=== PATIENT | female | born 1950 | race Caucasian/White ===

== ENCOUNTER 2019-03-21 23:16 | Emergency (ER) | payer OTHER ==
[~2019-03-21] VITALS: Ht 167.6 cm; Wt 86.2 kg
[~2019-03-21 23:16] MED LIST: ALBU2.5V5 INH; ALLER-TEC D 5-1 EACH PO; AMLO10 PO; CODEINE-GUAIFE120 ML PO; Flonase 0.05% N16 GM; HYDROCODONE-AC1 EAC1 PO; Humulin N100 UNIT/1 SQ; Ipratropium Brom5 GM MC; LEVA1.25 INH; LIDO700A20 TOP; Loratadine10 MG PO; METO10 PO; MOME220I INH; OMEPRAZOLE20 MG PO; PRAM.125 PO; PRED1 PO; SERT100 PO; Super Calcium600 MG PO; Tylenol325 MG PO; Ultram50 MG PO; Zocor20 MG PO
== END 2019-03-22 01:15 | disposition home or self-care (01) ==
LOC: ER 23:16
DX: S32.591A Other specified fracture of right pubis, initial encounter for closed fracture (principal); S40.011A Contusion of right shoulder, initial encounter; S70.01XA Contusion of right hip, initial encounter; E11.22 Type 2 diabetes mellitus with diabetic chronic kidney disease; N18.3 Chronic kidney disease, stage 3 (moderate); J45.909 Unspecified asthma, uncomplicated; M31.30 Wegener's granulomatosis without renal involvement; Z88.6 Allergy status to analgesic agent; Z88.2 Allergy status to sulfonamides; Z88.8 Allergy status to other drugs, medicaments and biological substances; Z79.899 Other long term (current) drug therapy; Z79.51 Long term (current) use of inhaled steroids; W18.30XA Fall on same level, unspecified, initial encounter; M25.511 Pain in right shoulder; E11.9 Type 2 diabetes mellitus without complications
CPT/HCPCS: 72192; 73030; 73502; 99283-25

== ENCOUNTER → 2020-01-30 | Outpatient (CLI) | payer OTHER | LOC: LAB SHORT 17:34 → LAB EV 17:34 | DX: R30.9 Painful micturition, unspecified (principal) | CPT/HCPCS: 87086 ==

== ENCOUNTER 2020-07-12 02:32 | Emergency (ER) | payer OTHER, SELFPAY ==
[~2020-07-12] VITALS: Ht 162.6 cm; Wt 81.7 kg
[2020-07-12] MEDS ORDERED: AMOCLA875 PO (03:54)
== END 2020-07-12 04:22 | disposition home or self-care (01) ==
LOC: ER 02:32
DX: J18.9 Pneumonia, unspecified organism (principal); J45.909 Unspecified asthma, uncomplicated; E11.22 Type 2 diabetes mellitus with diabetic chronic kidney disease; N18.30 Chronic kidney disease, stage 3 unspecified; Z79.899 Other long term (current) drug therapy; Z88.6 Allergy status to analgesic agent; Z88.2 Allergy status to sulfonamides; Z88.8 Allergy status to other drugs, medicaments and biological substances; Z79.52 Long term (current) use of systemic steroids
CPT/HCPCS: 71046; 94640; 99283-25; A9270; J1100

== ENCOUNTER → 2020-12-10 | Outpatient (CLI) | payer OTHER ==
[~2020-12-10] MED LIST changes: +AMOCLA875 PO
[2020-12-10 14:36] LABS: Appearance, Urine Hazy (Clear); Blood, Urine 1+ (Neg); Glucose Qualitative, Urine Neg (Neg); Ketones, Urine Neg (Neg); Leukocyte Esterase, Urine 2+ (Neg); Nitrite, Urine Pos (Neg); Protein, Urine 2+ (Neg); Specific Gravity, Urine 1.015 (1.003-1.022); Urobilinogen, Urine 2+ (Normal)
[2020-12-10 14:53] LABS: Bilirubin, Urine 2+ (Neg); Color, Urine Orange (P-Yellow)
[2020-12-10 14:55] LABS: Bacteria Mod /hpf; Red Blood Cells, Urine 0-2 /hpf (0-2); Squamous Epithelial Cells Rare /hpf (Few); White Blood Cells, Urine 50-100 /hpf (0-5)
== END | disposition home or self-care (01) ==
LOC: LAB SHORT 14:03 → LAB 14:03
PROVIDERS: Family Medicine
DX: R30.9 Painful micturition, unspecified (principal)
CPT/HCPCS: 81001; 87077; 87086; 87186

== ENCOUNTER 2021-04-06 12:41 | Day surgery (SDC) | payer OTHER ==
[~2021-04-06] VITALS: Ht 167.6 cm; Wt 86.9 kg
[2021-04-06] MEDS ORDERED: COLCHICINE0.6 MG (13:25)
[2021-04-06] MEDS ORDERED: DICLOFENAC SOD100 GM (13:25)
[2021-04-06] MEDS ORDERED: GLIP10ER (13:26)
[2021-04-06] MEDS ORDERED: PRED1 (13:27)
--- NOTE | 2021-04-06 13:58 | NUR ---
04/06/21 [address] LISA ABOUT PT WHEEZES, HE ORDERS DUONEB, GIVEN ORDERED.
--- NOTE | 2021-04-06 16:15 | NUR ---
04/06/21 1615 Linda Grant PT C/O 8/10 PAIN IN OPERATIVE LEG. MEDICATED WITH FENTANYL 25MCG IVP PER ORDERS. REPEATED DOSE AFTER 5 MINUTES. PT REPORTS SOME RELIEF FROM FENTANYL BUT STATES PAIN STILL 8/10.
== END 2021-04-06 16:50 | disposition home or self-care (01) ==
LOC: ORSCSDS 12:41
PROVIDERS: Podiatrist Foot & Ankle Surgery
PROC: 0LQV0ZZ Repair Right Foot Tendon, Open Approach (ICD-10-PCS; principal; 2021-04-06 14:15)
DX: M67.88 Other specified disorders of synovium and tendon, other site (principal); M76.71 Peroneal tendinitis, right leg; I10 Essential (primary) hypertension; G47.33 Obstructive sleep apnea (adult) (pediatric); K21.9 Gastro-esophageal reflux disease without esophagitis; E11.9 Type 2 diabetes mellitus without complications; F41.9 Anxiety disorder, unspecified; M04.9 Autoinflammatory syndrome, unspecified; Z79.899 Other long term (current) drug therapy
CPT/HCPCS: 82947; A9270; J0171; J0690; J1100; J1885; J2405; J2704; J3010; J7120

== ENCOUNTER → 2021-08-25 | Outpatient (CLI) | payer OTHER ==
[~2021-08-25] MED LIST changes: +COLCHICINE0.6 MG; +DICLOFENAC SOD100 GM; +GLIP10ER; +PRED1
== END | disposition home or self-care (01) ==
LOC: LAB 16:00 → LAB SHORT 16:00
PROVIDERS: Family Medicine
DX: G89.4 Chronic pain syndrome (principal); Z79.899 Other long term (current) drug therapy
CPT/HCPCS: G0480

== ENCOUNTER 2022-06-16 11:39 | Day surgery (SDC) | payer OTHER ==
[~2022-06-16] VITALS: Ht 167.6 cm; Wt 78.0 kg
[2022-06-16] MEDS ORDERED: METF500 PO (12:40)
--- NOTE | 2022-06-16 13:53 | NUR ---
06/16/22 1353 Joy Malagon CASE CANCELLED BY DOCTORS DUE TO SINUS ISSUES/CONGESTION/RISK OF INFECTION. PATIENT DISCHARGED HOME PRIOR TO ANY MEDICATIONS GIVEN. IV DISCONTINUED. PATIENT VERBALIZED UNDERSTANDING.
== END 2022-06-16 13:50 | disposition home or self-care (01) ==
LOC: ORSCSDS 11:39
DX: G56.01 Carpal tunnel syndrome, right upper limb (principal); Z53.9 Procedure and treatment not carried out, unspecified reason; E11.9 Type 2 diabetes mellitus without complications; J45.909 Unspecified asthma, uncomplicated; Z79.84 Long term (current) use of oral hypoglycemic drugs; Z79.899 Other long term (current) drug therapy
CPT/HCPCS: 82947; J0690; J2001; J2250; J2704; J3010; J7120

== ENCOUNTER → 2022-08-24 | Outpatient (CLI) | payer OTHER ==
[~2022-08-24] MED LIST changes: +METF500 PO
[2022-08-24 11:02] LABS: BASOPHILS ABSOLUTE AUTO 0.04 K/mm3 (0.00-0.23); BASOPHILS PERCENT AUTO 1 % (0-2); EOSINOPHILS PERCENT AUTO 5 % (0-6); Hematocrit 39.6 % (33.0-51.0); IMMATURE GRAN ABSOLUTE AUTO 0.01 K/mm3 (0.00-0.10); IMMATURE GRAN PERCENT AUTO 0 % (0-1); LYMPHOCYTES ABSOLUTE AUTO 1.33 K/mm3 (0.84-5.20); LYMPHOCYTES PERCENT AUTO 30 % (21-46); MONOCYTES ABSOLUTE AUTO 0.41 K/mm3 (0.16-1.47); MONOCYTES PERCENT AUTO 9 % (4-13); Mean Corpuscular HGB 29.6 pg (26.0-34.0); Mean Corpuscular HGB Conc 32.8 g/dL (31.5-36.5); Mean Corpuscular Volume 90 fL (80-100); Mean Platelet Volume 9.7 fL (9.1-12.4); NEUTROPHILS ABSOLUTE AUTO 2.46 K/mm3 (1.96-9.15); NEUTROPHILS PERCENT AUTO 55 % (41-73); Platelet Count 246 K/mm3 (150-400); RDW Coefficient Variation 13.9 % (11.7-14.2); RDW Standard Deviation 46.4 fL (35.1-46.3); Red Blood Cell Count 4.39 M/mm3 (3.80-5.20); White Blood Cell Count 4.45 K/mm3 (4.00-11.30)
[2022-08-24 11:11] LABS: Bun/Creatinine Ratio 20.7 (12.0-20.0); Calcium, Blood 9.2 mg/dL (8.5-10.1); Creatinine, Blood 1.16 mg/dL (0.40-1.00); Potassium, Blood 4.1 mmol/L (3.5-5.5)
== END | disposition home or self-care (01) ==
LOC: LAB 10:57 → LAB SHORT 10:57
PROVIDERS: Physician Assistant Surgical
DX: M79.89 Other specified soft tissue disorders (principal)
CPT/HCPCS: 80048; 83880; 85025

== ENCOUNTER 2022-12-29 08:47 | Day surgery (SDC) | payer OTHER ==
[~2022-12-29] VITALS: Ht 167.6 cm; Wt 76.7 kg
[2022-12-29 11:33] VITALS: BP 118/71
== END 2022-12-29 12:22 | disposition home or self-care (01) ==
LOC: ORSCSDS 08:47
PROVIDERS: Orthopaedic Surgery
PROC: 01N50ZZ Release Median Nerve, Open Approach (ICD-10-PCS; principal; 2022-12-29 10:15)
DX: G56.03 Carpal tunnel syndrome, bilateral upper limbs (principal); E11.9 Type 2 diabetes mellitus without complications; I10 Essential (primary) hypertension; G47.33 Obstructive sleep apnea (adult) (pediatric); E78.5 Hyperlipidemia, unspecified; Z79.899 Other long term (current) drug therapy; F41.8 Other specified anxiety disorders; J45.909 Unspecified asthma, uncomplicated; Z79.4 Long term (current) use of insulin; Z79.84 Long term (current) use of oral hypoglycemic drugs
CPT/HCPCS: 82947; J0690; J1100; J2405; J2704; J3010; J7120

== ENCOUNTER → 2023-03-05 | Outpatient (CLI) | payer OTHER | LOC: LAB SHORT 12:39 → LAB 12:39 | DX: J18.9 Pneumonia, unspecified organism (principal) | CPT/HCPCS: 87070; 87205 ==

== ENCOUNTER 2023-08-06 09:59 | Emergency (ER) | payer OTHER ==
[~2023-08-06] VITALS: Ht 165.1 cm; Wt 79.4 kg
[2023-08-06 10:36] VITALS: BP 119/73
== END 2023-08-06 12:02 | disposition home or self-care (01) ==
LOC: ER 09:59
DX: M17.11 Unilateral primary osteoarthritis, right knee (principal); G89.29 Other chronic pain; W18.30XA Fall on same level, unspecified, initial encounter
CPT/HCPCS: 73562-RT; 99283-25

== ENCOUNTER → 2024-01-02 | Outpatient (CLI) | payer OTHER | LOC: LAB 17:45 → LAB SHORT 17:45 | DX: N39.0 Urinary tract infection, site not specified (principal) | CPT/HCPCS: 87077; 87086; 87186 ==

== ENCOUNTER → 2024-05-05 | Outpatient (CLI) | payer OTHER | LOC: LAB SHORT 11:00 → LAB 11:00 | DX: N39.0 Urinary tract infection, site not specified (principal) | CPT/HCPCS: 87077; 87086; 87186 ==

== ENCOUNTER 2024-05-25 13:02 | Emergency (ER) | payer OTHER ==
[~2024-05-25] VITALS: Ht 167.6 cm; Wt 81.7 kg
[2024-05-25 14:53] VITALS: BP 123/53
== END 2024-05-25 16:32 | disposition home or self-care (01) ==
LOC: ER 13:02
DX: M25.561 Pain in right knee (principal); W50.0XXA Accidental hit or strike by another person, initial encounter; E11.8 Type 2 diabetes mellitus with unspecified complications; N18.30 Chronic kidney disease, stage 3 unspecified; J45.909 Unspecified asthma, uncomplicated; Z88.6 Allergy status to analgesic agent; Z88.2 Allergy status to sulfonamides; Z88.8 Allergy status to other drugs, medicaments and biological substances; Z88.9 Allergy status to unspecified drugs, medicaments and biological substances; Z79.83 Long term (current) use of bisphosphonates; Z79.51 Long term (current) use of inhaled steroids; Z79.891 Long term (current) use of opiate analgesic; Z79.899 Other long term (current) drug therapy
CPT/HCPCS: 73560-RT; 99283-25

== ENCOUNTER → 2024-07-02 | Outpatient (CLI) | payer OTHER ==
[2024-07-02 12:21] LABS: Source, Urine Voided
[2024-07-02 13:11] LABS: Appearance, Urine Cloudy (Clear); Bilirubin, Urine Neg (Neg); Blood, Urine 4+ (Neg); Color, Urine Yellow (P-Yellow); Glucose Qualitative, Urine Neg (Neg); Ketones, Urine Neg (Neg); Leukocyte Esterase, Urine 3+ (Neg); Nitrite, Urine Neg (Neg); Protein, Urine 3+ (Neg); Urobilinogen, Urine 1+ (Normal)
[2024-07-02 13:34] LABS: Bacteria Many /hpf; Hyaline Casts 0-2 /lpf (0-2); Squamous Epithelial Cells Few /hpf (Few); White Blood Cells, Urine 50-100 /hpf (0-5)
== END ==
LOC: LAB 10:19 → LAB SHORT 10:19
PROVIDERS: Nurse Practitioner Family
DX: N39.0 Urinary tract infection, site not specified (principal)
CPT/HCPCS: 81001; 87086